=== PATIENT | male | born 1970 | race Caucasian/White ===

== ENCOUNTER 2017-03-27 07:17 | Emergency (ER) | payer OTHER ==
--- NOTE | 2017-03-27 07:32 | PDOC ---
Attending Attestation - Resident Resident Name: Lenny Linda - ED Attending Attestation I have performed the following: I have examined & evaluated the patient, The case was reviewed & discussed with the resident, I agree w/resident's findings & plan, Exceptions are as noted - HPI HPI: 46 yo M history ESRD on HD, DM2, afib presents with chest pain. Woke up with the pain this morning. Took nitro with some relief, but still has pain and SOB. [place] from [place]. His roll changer is out of state as well. He states he has not had any recent cardiac testing. Currently pain free after the aspirin and second round of nitro from EMS. - Physicial Exam PE: GENERAL: Awake, alert, and fully oriented, in no acute distress. Morbidly obese. HEAD: No signs of trauma EYES: PERRLA, EOMI, sclera anicteric, conjunctiva clear ENT: Auricles normal inspection, hearing grossly normal, nares patent, oropharynx clear without exudates. Moist mucosa NECK: Normal ROM, supple, no lymphadenopathy, JVD, or masses LUNGS: Breath sounds equal, clear to auscultation bilaterally. No wheezes, and no crackles HEART: Regular rate and rhythm, normal S1 and S2, no murmurs, rubs or gallops ABDOMEN: Soft, nontender, normoactive bowel sounds. No guarding, no rebound. No masses EXTREMITIES: Normal range of motion, 1+ pitting edema to the feet B/L. No clubbing or cyanosis. No cords, erythema, or tenderness NEUROLOGICAL: Cranial nerves II through XII grossly intact. Normal speech, normal gait SKIN: Warm, Dry, normal turgor, no rashes or lesions noted. - Medical Decision Making 46 yo M with prior cardiac history, ESRD, DM presenting with chest pain relieved by nitro. Patient is high risk for CAD, recommend admission. 03/27/17 11:20 Addendum to prior note- patient states he has has same symptoms one week ago. He drank too much fluid over the weekend, slept lying completely flat. He woke up feeling like he couldn't breathe. He was admitted and cleared to go home. Today he had similar symptoms and similar circumstances. He has no pain at present and is scheduled for dialysis this afternoon. Will DC home. If cp returns, recommend staying for admission at that time. Heart Score/ECG Review - History History: Highly suspicious - Electrocardiogram EKG: Normal - Age Age: 45-65 - Risk Factors Risk Factors Heart Score: Yes Hx Hypertension, Yes Hx Diabetes Based on the list above the patient has:: 1-2 risk factors - Troponin Troponin: </= normal limit - Score Heart Score - Total: 4 - ECG Impressions Comment:: EKG read 07:40- NSR 80 bpm, no acute ST/T changes
[2017-03-27 07:46] VITALS: TEMP 97.8; BMI 48.6
--- NOTE | 2017-03-27 07:54 | PDOC ---
History of Present Illness - General History Source: Patient Exam Limitations: No Limitations <Lenny Linda - Last Filed: 03/27/17 11:17> <Larisa Lawson - Last Filed: 03/27/17 11:32> - General Chief Complaint: Chest Pain Stated Complaint: CHEST PAIN Time Seen by Provider: 03/27/17 07:23 - History of Present Illness Initial Comments: 03/27/17 08:01 46m with pmh of DM2, ESRF on HD, HTN and A-fib on warfarin presents with episode of chest pain and sob responsive to Nitro. He woke up last night with those symptoms and called EMS. pt took 1 sl nitro and 162 of asa on own-pt also given 1 sl nitro and 162 asa by ems for a total of 324 of asa and 2 sl nitro. He's due for dialysis today, last time was Monday. Patient from [place] visiting family. Claims to be doing much better after nitro. Comfortable. Multiple similar episodes in the past. No headache, diaphoresis or radiating arm pain. 03/27/17 08:23 03/27/17 11:13 Patient admitted that he overloaded himself with fluids last night which impaired his breathing when he laid himself flat for sleeping. Patient had this happened to him multiple times before. Patient is booked to be dialyzed today at 6pm. Pt to be discharged so he can make his appointment. 03/27/17 11:16 03/27/17 11:17 (Lenny Linda) Past History - Past Medical History Diabetes: Yes Dialysis: Yes <Lenny Linda - Last Filed: 03/27/17 11:17> <Larisa Lawson - Last Filed: 03/27/17 11:32> - Past Medical History Allergies/Adverse Reactions: Allergies Allergy/AdvReac Type Severity Reaction Status Date / Time No Known Allergies Allergy Verified 03/27/17 09:54 Home Medications: Ambulatory Orders Aspirin [ASA -] 81 mg PO DAILY 03/27/17 Insulin (Novolog 70/30) [Novolog Mix 70/30 Flexpen -] 25 mg SQ HS 03/27/17 Insulin (Novolog 70/30) [Novolog Mix 70/30 Flexpen -] 30 units SQ AM 03/27/17 Lisinopril [Prinivil] 10 mg PO DAILY 03/27/17 Warfarin Sodium [Coumadin] 2 mg PO DAILY 03/27/17 Review of Systems <Lenny Linda - Last Filed: 03/27/17 11:17> - Review of Systems Able to Perform ROS?: Yes <Larisa Lawson - Last Filed: 03/27/17 11:32> - Review of Systems Comments:: GENERAL/CONSTITUTIONAL: No fever or chills. No weakness. HEAD, EYES, EARS, NOSE AND THROAT: No change in vision. No ear pain or discharge. No sore throat. CARDIOVASCULAR: +Chest pressure/shortness of breath. RESPIRATORY: No cough, wheezing, or hemoptysis. GASTROINTESTINAL: No nausea, vomiting, diarrhea or constipation. GENITOURINARY: No dysuria, frequency, or change in urination. MUSCULOSKELETAL: No joint or muscle swelling or pain. No neck or back pain. SKIN: No rash NEUROLOGIC: No headache, vertigo, loss of consciousness, or change in strength/ sensation. ENDOCRINE: No increased thirst. No abnormal weight change. HEMATOLOGIC/LYMPHATIC: No anemia, easy bleeding, or history of blood clots. ALLERGIC/IMMUNOLOGIC: No hives or skin allergy. (Larisa Lawson) *Physical Exam - Physical Exam General Appearance: Yes: Obese. No: Apparent Distress HEENT: positive: EOMI, REYMUNDO Neck: negative: Tender Respiratory/Chest: positive: Lungs Clear, Normal Breath Sounds. negative: Chest Tender Cardiovascular: positive: Regular Rhythm, Regular Rate, S1, S2 Vascular Pulses: Dorsalis-Pedis (R): 1+, Doralis-Pedis (L): 1+ Gastrointestinal/Abdominal: positive: Normal Bowel Sounds, Soft. negative: Tender Extremity: positive: Normal Capillary Refill, Normal Range of Motion Neurologic: positive: Fully Oriented, Alert, Normal Mood/Affect <Lenny Linda - Last Filed: 03/27/17 11:17> - Vital Signs Last Vital Signs Temp Pulse Resp BP Pulse Ox 97.8 F 74 18 149/79 97 03/27/17 07:17 03/27/17 11:23 03/27/17 11:23 03/27/17 11:23 03/27/17 11:23 Heart Score/ECG Review - History History: Highly suspicious - Electrocardiogram EKG: Normal - Age Age: 45-65 - Risk Factors Risk Factors Heart Score: Yes Hx Hypercholesterolemia, Yes Hx Hypertension, Yes Hx Diabetes, Yes Smoking History, Yes Positive family hx of cardiac disease, Yes Hx Obesity Based on the list above the patient has:: >/=3 risk factors or Hx atherosclerotic disease - Troponin Troponin: </= normal limit - Score Heart Score - Total: 5 - ECG Intrepretation Rhythm: Regular Rhythm <Lenny Linda - Last Filed: 03/27/17 11:17> ED Treatment Course - LABORATORY CBC & Chemistry Diagram: 03/27/17 08:38 03/27/17 08:38 <Lenny Linda - Last Filed: 03/27/17 11:17> - LABORATORY CBC & Chemistry Diagram: 03/27/17 08:38 03/27/17 08:38 <Larisa Lawson - Last Filed: 03/27/17 11:32> - ADDITIONAL ORDERS Additional order review: Laboratory Results 03/27/17 03/27/17 03/27/17 08:38 08:38 08:38 INR 2.11 H PTT (Actin FS) 46.9 H Sodium 141 Potassium 4.8 Chloride 102 Carbon Dioxide 28 Anion Gap 11 BUN 52 H Creatinine 11.4 H* Creat Clearance w eGFR 4.83 Random Glucose 164 H Calcium 8.8 Phosphorus 6.6 H Magnesium 2.0 Total Bilirubin 0.3 AST 9 L ALT 20 Alkaline Phosphatase 111 Creatine Kinase 520 H Creatine Kinase Index 0.7 CK-MB (CK-2) 3.5 CK-MB (CK-2) Rel Index Cancelled Troponin I 0.03 Total Protein 6.8 Albumin 3.4 03/27/17 08:38 RBC 3.36 L MCV 90.0 MCHC 32.0 RDW 16.2 H MPV 11.2 H Neutrophils % 72.4 Lymphocytes % 15.4 Monocytes % 7.5 Eosinophils % 3.4 Basophils % 1.3 - RADIOLOGY Radiology Studies Ordered: Category Date Time Status CHEST X-RAY PORTABLE* [RAD] Stat Radiology 03/27/17 07:33 Completed Medical Decision Making <Lenny Linda - Last Filed: 03/27/17 11:17> <Larisa Lawson - Last Filed: 03/27/17 11:32> - Medical Decision Making 03/27/17 08:14 46M with pmh of DM2, ESRD on HD and a-fib on Coumadin and stable angina presents with chest pain and sob. Patient felling better on Nitro. Heart Score 4+ R/O CO: EKG -, trops pending labs and cxr pending trop negativ 03/27/17 11:18 Patient admitted that he overloaded himself with fluids last night which impaired his breathing when he laid himself flat for sleeping. Patient had this happened to him multiple times before. Patient is booked to be dialyzed today at 6pm. Pt to be discharged so he can make his appointment. Seen last week by another hospital and was cleared for d/c (Lenny Linda) *DC/Admit/Observation/Transfer - Discharge Dispostion Admit: No <Lenny Linda - Last Filed: 03/27/17 11:17> <Larisa Lawson - Last Filed: 03/27/17 11:32> Diagnosis at time of Disposition: ESRF (end stage renal failure) - Discharge Dispostion Disposition: HOME Condition at time of disposition: Improved - Referrals Referrals: STAFF,NOT ON [Primary Care Provider] - - Patient Instructions Printed Discharge Instructions: DI for Chest Pain Additional Instructions: PLease follw up with your scheduled dialysis treatment
[2017-03-27 08:47] LABS: BASOPHIL 1.3 % (0-2.0); EOSINOPHIL 3.4 % (0-4.5); MCH 28.8 pg (25.7-33.7); MEAN PLT VOLUME 11.2 fl (7.5-11.1); NEUTROPHILS 72.4 % (42.8-82.8); PLATELET COUNT 168 K/MM3 (134-434); RDW 16.2 % (11.9-15.9); WHITE BLOOD COUNT 8.3 K/mm3 (4.0-10.0)
[2017-03-27 09:02] LABS: INR 2.11 (0.82-1.09); PROTHROMBIN TIME (PATIENT) 23.6 SEC (9.98-11.88)
[2017-03-27 09:05] LABS: ACTIVATED PTT 46.9 SECONDS (26.9-34.4)
[2017-03-27 09:17] LABS: ALBUMIN 3.4 g/dl (3.4-5.0); ANION GAP 11 (8-16); BILIRUBIN,TOTAL 0.3 mg/dL (0.2-1.0); CALCIUM 8.8 mg/dL (8.5-10.1); CO2 28 mmol/L (21-32); GLUCOSE,RANDOM 164 mg/dL (74-106); PHOSPHOROUS 6.6 mg/dL (2.5-4.9); SGOT/AST 9 U/L (15-37); SGPT/ALT 20 U/L (12-78); TOT PROT 6.8 g/dl (6.4-8.2)
[2017-03-27 09:19] LABS: ALK PHOS 111 U/L (45-117)
[2017-03-27 09:23] LABS: TROPONIN I 0.03 ng/ml (0.00-0.05)
[2017-03-27 09:28] LABS: CREATININE 11.4 mg/dL (0.7-1.3)
--- NOTE | 2017-03-27 10:21 | CON.CARD ---
Consult Consult Specialty:: Cardiology Referred by:: Emergency Medicine Reason for Consultation:: Chest Pain - History of Present Illness Chief Complaint: Chest pain History of Present Illness: Patient discharged prior to being seen. - Alcohol/Substance Use Hx Alcohol Use: No - Smoking History Smoking history: Former smoker Have you smoked in the past 12 months: No If you are a former smoker, when did you quit?: 15 years ago Home Medications - Allergies Allergies/Adverse Reactions: Allergies Allergy/AdvReac Type Severity Reaction Status Date / Time No Known Allergies Allergy Verified 03/27/17 09:54 - Home Medications Home Medications: Ambulatory Orders Aspirin [ASA -] 81 mg PO DAILY 03/27/17 Insulin (Novolog 70/30) [Novolog Mix 70/30 Flexpen -] 25 mg SQ HS 03/27/17 Insulin (Novolog 70/30) [Novolog Mix 70/30 Flexpen -] 30 units SQ AM 03/27/17 Lisinopril [Prinivil] 10 mg PO DAILY 03/27/17 Warfarin Sodium [Coumadin] 2 mg PO DAILY 03/27/17 Vital Signs: Vital Signs Temperature 97.8 F 03/27/17 07:17 Pulse Rate 77 03/27/17 07:17 Respiratory Rate 18 03/27/17 07:17 Blood Pressure 162/93 03/27/17 07:17 O2 Sat by Pulse Oximetry (%) 94 L 03/27/17 07:17 - Other Data Labs, Other Data: CBC, BMP 03/27/17 08:38 03/27/17 08:38 INR, PTT INR 2.11 (0.82-1.09) H 03/27/17 08:38 Troponin, BNP 03/27/17 08:38 Troponin I 0.03 Troponin, BNP 03/27/17 08:38 Troponin I 0.03 Assessment/Plan Patient discharged prior to being seen.
--- NOTE | 2017-03-27 10:48 | EKG ---
Test Reason : Blood Pressure : / mmHG Vent. Rate : 080 BPM Atrial Rate : 080 BPM P-R Int : 166 ms QRS Dur : 080 ms QT Int : 402 ms P-R-T Axes : 055 -10 -03 degrees QTc Int : 463 ms NORMAL SINUS RHYTHM NORMAL ECG NO PREVIOUS ECGS AVAILABLE Confirmed by NARA LITTLE MD ([id number]) on 03/27/2017 10:47:38 AM Referred By: Confirmed By:NARA LITTLE MD
[2017-03-27 11:24] VITALS: BP 149/79; PULSE 74
== END 2017-03-27 11:24 | disposition home or self-care (01) ==
LOC: JER 07:17
DX: I12.0 Hypertensive chronic kidney disease with stage 5 chronic kidney disease or end stage renal disease (principal); E11.22 Type 2 diabetes mellitus with diabetic chronic kidney disease; N18.6 End stage renal disease; N17.8 Other acute kidney failure; Z99.2 Dependence on renal dialysis; Z79.4 Long term (current) use of insulin; I48.91 Unspecified atrial fibrillation; Z79.01 Long term (current) use of anticoagulants; E78.00 Pure hypercholesterolemia, unspecified
CPT/HCPCS: 36415; 71010-TC; 80053; 82550; 82553; 83735; 84100; 84484; 85025; 85610; 85730; 93005; 93010; 99284-25